=== PATIENT | female | born 1985 | race Two or more races ===

== ENCOUNTER 2016-11-05 17:30 | Emergency (ER) | payer SELFPAY ==
[~2016-11-05] VITALS: Ht 167.6 cm; Wt 63.6 kg
[2016-11-05] MEDS ORDERED: SODIUM CHLORIDE 0.9% 1,000ML IVBOLUS ONE (18:30)
[2016-11-05] MEDS ORDERED: SODIUM CHLORIDE FLUSH 10ML SYR IVF ONE (18:30)
[2016-11-05 18:43] VITALS: BP 118/76
[2016-11-05 18:46] LABS: BLOOD UREA NITROGEN 12 mg/dL (7-18)
[2016-11-05] MEDS ORDERED: ACETAMINOPHEN 325 MG TABLET PO ONE (19:30)
[2016-11-05] MEDS ORDERED: IBUPROFEN 200 MG TABLET PO ONE (19:30)
[2016-11-05] MEDS ORDERED: ACETAMINOPHEN 325 MG TABLET ONE (19:30)
[2016-11-05] MEDS ORDERED: IBUPROFEN 200 MG TABLET ONE (19:30)
== END 2016-11-05 19:45 | disposition left against medical advice (07) ==
LOC: ED 19:32
DX: Z91.14 Patient's other noncompliance with medication regimen (principal); F32.9 Major depressive disorder, single episode, unspecified
CPT/HCPCS: 36415; 80048; 82040; 84703; 85025; 96360; 99284; J7030